=== PATIENT | female | born 1960 | race Caucasian/White ===

== ENCOUNTER 2024-01-03 14:55 | Inpatient (IN) | payer MEDICARE ==
[~2024-01-03] VITALS: Ht 160 cm; Wt 99.8 kg
[2024-01-03] MEDS: SODIUM CHLORIDE 0.9% 500ML 500 ML IV STA (15:50)
[2024-01-03] MEDS: FAMOTIDINE 20 MG/2 ML VIAL IV ONE (15:52)
[2024-01-03] MEDS: ONDANSETRON HCL INJ 2MG/ML 2ML 2 MG/ML VIAL IV ONE (15:52)
[2024-01-03] MEDS ORDERED: FAMOTIDINE 20 MG TAB PO SCH (16:15)
[2024-01-03] MEDS ORDERED: ONDANSETRON HCL INJ 2MG/ML 2ML 2 MG/ML VIAL IV PRN (16:15)
[2024-01-03] MEDS ORDERED: SODIUM CHLORIDE FLUSH 10 ML SYR INJ PRN (16:15)
[2024-01-03] MEDS ORDERED: DEXTROSE 50% SYRINGE 50 ML IV PRN (16:30)
[2024-01-03] MEDS ORDERED: LACTATED RINGER'S 1,000 ML IV SCH (16:30)
[2024-01-03 17:30] VITALS: PULSE 97; RESP 17; TEMP 98.2
[2024-01-03 17:31] LABS: TROPONIN I 0.013 ng/mL (0-0.300)
[2024-01-03] MEDS ORDERED: CLONIDINE HCL 0.2 MG TAB PO PRN (17:45)
[2024-01-03] MEDS ORDERED: DIPHENHYDRAMINE HCL INJ 50 MG/ML VIAL IV PRN (17:45)
[2024-01-03] MEDS ORDERED: HYDRALAZINE HCL 20 MG/ML VIAL IV PRN (17:45)
[2024-01-03] MEDS ORDERED: FAMOTIDINE 20 MG/2 ML VIAL IV SCH (17:45)
[2024-01-03] MEDS: NITROGLYCERIN 2% OINT 1 GM PKT TOP SCH (18:00)
[2024-01-03] MEDS ORDERED: MUPIROCIN22 GM (18:35)
[2024-01-03] MEDS ORDERED: LOSARTAN POTAS100 MG (18:35)
[2024-01-03] MEDS ORDERED: POTASSIUM CHLO20 ME2 (18:35)
[2024-01-03] MEDS ORDERED: FUROSEMIDE40 MG (18:35)
[2024-01-03] MEDS ORDERED: ATORVASTATIN CA80 MG (18:35)
[2024-01-03] MEDS ORDERED: AMLODIPINE BESY10 MG (18:35)
[2024-01-03] MEDS ORDERED: LANTUS 3ML100 UNITS/ SQ (18:35)
[2024-01-03] MEDS ORDERED: ALLOPURINOL100 MG (18:35)
[2024-01-03] MEDS ORDERED: REZVOGLAR100 UNIT/1 (18:35)
[2024-01-03] MEDS ORDERED: FLUTICASONE PRO16 GM (18:35)
[2024-01-03] MEDS ORDERED: AIRSUPRA 90-810.7 GM (18:35)
[2024-01-03] MEDS ORDERED: CARVEDILOL6.25 MG (18:35)
[2024-01-03] MEDS ORDERED: JARDIANCE10 MG (18:35)
[2024-01-03] MEDS ORDERED: GABAPENTIN100 MG (18:35)
[2024-01-03] MEDS ORDERED: ZYLOPRIM100 MG (18:35)
[2024-01-03] MEDS ORDERED: PROTONIX40 MG/ML (18:35)
[2024-01-03] MEDS ORDERED: ASPIRIN325 MG (18:35)
[2024-01-03] MEDS ORDERED: PANTOPRAZOLE SO40 MG (18:35)
[2024-01-03] MEDS ORDERED: CLOPIDOGREL75 MG (18:35)
[2024-01-03] MEDS ORDERED: HYDRALAZINE HCL25 MG (18:35)
[2024-01-03 20:00] VITALS: BP 161/73; PULSE 98; RESP 20; TEMP 98.2; O2SAT 96
[2024-01-03] MEDS: INSULIN REGULAR, HUMAN 100 UNIT/1 ML SQ SCH (21:00)
[2024-01-03] MEDS ORDERED: SIMVASTATIN 40 MG TAB PO SCH (21:00)
[2024-01-03] MEDS: DONNATAL/LIDOCAINE/MAALOX 30 ML SUSP PO ONE (21:46)
[2024-01-03] MEDS: ZOLPIDEM TARTRATE 5 MG TAB PO PRN (21:53)
[2024-01-03 22:35] VITALS: PULSE 78; RESP 16; O2SAT 94
[2024-01-04] VITALS (11 sets, daily range): BP systolic 141–190; BP diastolic 56–75; PULSE 79–98; RESP 16–20; TEMP 98–99.2; O2SAT 93–99
[2024-01-04] MEDS: ALBUTEROL/IPRATROPIUM 3 ML NEB NEB SCH (03:12)
[2024-01-04] MEDS: NICOTINE 14 MG/EA PATCH TOP SCH (03:49)
[2024-01-04 04:01] LABS: BILIRUBIN,URINE NEGATIVE (NEGATIVE); CLARITY,URINE CLOUDY (CLEAR); COLOR,URINE YELLOW (YELLOW); GLUCOSE, URINE 500 (NEGATIVE); KETONES,URINE NEGATIVE (NEGATIVE); LEUKOCYTE ESTERASE ,URINE NEGATIVE (NEGATIVE); NITRITE,URINE NEGATIVE (NEGATIVE); PH,URINE 5.5 (5 - 7); PROTEIN,URINE DIPSTICK >=300 (NEGATIVE); URINE UROBILINOGEN 0.2 mg/dL (0.2 - 1)
[2024-01-04 04:26] LABS: AMORPHOUS SEDIMENT,URINE MANY (FEW); BACTERIA,URINE MANY /HPF; EPITHELIAL CELLS,URINE MANY /LPF; RBC,URINE 21-50 /HPF (0-5); TRANSITIONAL EPI CELLS,URINE FEW; WBC,URINE (MAN) >50 /HPF (0-5)
[2024-01-04 05:42] LABS: BASOPHILS % 0.3 % (0.0-1.0); EOSINOPHILS % 0.2 % (0.0-6.0); HEMATOCRIT 35.9 % (34.2-44.1); HEMOGLOBIN 11.5 g/dL (12.0-16.0); LYMPHOCYTES # (AUTO) 0.7 (1.0-3.2); LYMPHOCYTES % 5.1 % (18.0-39.1); MEAN CORPUSCULAR HEMOGLOBIN 26.1 pg (28-32); MEAN CORPUSCULAR VOLUME 81.6 fL (81-99); MONOCYTES # (AUTO) 1.2 (0.2-0.8); MONOCYTES % 8.9 % (4.4-11.3); NEUTROPHILS # (AUTO) 11.3 (2.1-6.9); NEUTROPHILS % 84.6 % (38.7-80.0); PLATELET COUNT 213 x10e3/uL (140-360); RED CELL DISTRIBUTION WIDTH 15.2 % (11.7-14.4); WHITE BLOOD COUNT 13.38 x10e3/uL (4.8-10.8)
[2024-01-04 06:16] LABS: B-TYPE NATRIURETIC PEPTIDE2 891.2 pg/mL (0-100)
[2024-01-04 06:22] LABS: FREE T4 (FREE THYROXINE) 1.16 ng/dL (0.8-1.8); THYROID STIMULATING HORMONE 0.614 uIU/mL (0.350-4.940)
[2024-01-04 06:41] LABS: TROPONIN I 0.023 ng/mL (0-0.300)
[2024-01-04 07:48] LABS: ANION GAP 15.9 mmol/L (8-16); CALCIUM 9.8 mg/dL (8.4-10.2); CHOL/HDL RATIO 3.7 (3.0-3.6); CREATININE, SERUM 3.14 mg/dL (0.57-1.11); POTASSIUM 3.9 mmol/L (3.5-5.1)
[2024-01-04] MEDS: CEFTRIAXONE 1 GM VIAL IV ONE (08:11)
[2024-01-04] MEDS: CARVEDILOL 3.125 MG TAB PO SCH ×2 (08:31→16:08)
[2024-01-04] MEDS: PANTOPRAZOLE SOD 40 MG TABEC PO SCH (08:32)
[2024-01-04] MEDS: EMPAGLIFLOZIN 10 MG TABLET PO SCH (08:32)
[2024-01-04] MEDS: ALLOPURINOL 100 MG TAB PO SCH (08:32)
[2024-01-04] MEDS: HYDRALAZINE HCL 25 MG TAB PO SCH ×2 (08:32→15:52)
[2024-01-04] MEDS: CLOPIDOGREL BISULFATE 75 MG TAB PO SCH (08:32)
[2024-01-04] MEDS: ASPIRIN 325 MG TAB EC PO SCH (08:32)
[2024-01-04] MEDS: MUPIROCIN 2% OINT 22 GM TUBE TP SCH (08:33)
[2024-01-04] MEDS: LOSARTAN POTASSIUM 100 MG TAB PO SCH (08:33)
[2024-01-04] MEDS ORDERED: ASPIRIN 325 MG TAB PO SCH (09:00)
[2024-01-04] MEDS: FLUTICASONE PROPIONATE NASAL SPRAY NS SCH (10:08)
[2024-01-04] MEDS: NYSTATIN 15 GM POWDER UD BTL TOP PRN (10:09)
[2024-01-04] MEDS: ENOXAPARIN 30 MG/0.3 ML SYR SC SCH (10:14)
[2024-01-04] MEDS: LACTATED RINGER'S 1,000 ML INJ ONE (15:52)
[2024-01-04] MEDS: BENZONATATE 100 MG CAP PO PRN (16:07)
[2024-01-04 18:03] LABS: CREATININE,URINE RANDOM 95.1 mg/dL (47-110)
[2024-01-04 18:21] LABS: TOTAL PROTEIN, URINE 480.2 mg/dL (1-14)
[2024-01-05] VITALS (10 sets, daily range): BP systolic 104–155; BP diastolic 47–63; PULSE 63–83; RESP 17–22; TEMP 97.8–99.8; O2SAT 93–98
[2024-01-05] MEDS: ACETAMINOPHEN 325 MG TAB PO PRN (05:48)
[2024-01-05 09:37] LABS: ANION GAP 14.8 mmol/L (8-16); CALCIUM 8.5 mg/dL (8.4-10.2); CREATININE, SERUM 3.54 mg/dL (0.57-1.11); PHOSPHORUS 3.1 MG/DL (2.3-4.7); POTASSIUM 3.8 mmol/L (3.5-5.1)
[2024-01-05] MEDS: POLYETHYLENE GLYCOL 3350 17 GM PACK PO PRN (16:26)
[2024-01-05] MEDS ORDERED: ONDANSETRON HCL 4 MG ORAL DISINTEGRATING TAB PO PRN (17:15)
[2024-01-05] MEDS: INSULIN GLARGINE 100 UNITS/ML VIAL SQ SCH (22:07)
[2024-01-06] VITALS (11 sets, daily range): BP systolic 110–151; BP diastolic 48–64; PULSE 69–98; RESP 18–22; TEMP 97.9–101.5; O2SAT 94–100
[2024-01-06 05:23] LABS: BASOPHILS % 0.2 % (0.0-1.0); EOSINOPHILS # (AUTO) 0.1 (0.0-0.4); EOSINOPHILS % 0.5 % (0.0-6.0); HEMATOCRIT 32.1 % (34.2-44.1); HEMOGLOBIN 10.3 g/dL (12.0-16.0); LYMPHOCYTES % 7.7 % (18.0-39.1); MEAN CORPUSCULAR HGB CONC 32.1 g/dL (31-35); MEAN CORPUSCULAR VOLUME 81.1 fL (81-99); MONOCYTES # (AUTO) 1.4 (0.2-0.8); MONOCYTES % 11.5 % (4.4-11.3); NEUTROPHILS # (AUTO) 9.9 (2.1-6.9); NEUTROPHILS % 79.1 % (38.7-80.0); PLATELET COUNT 218 x10e3/uL (140-360); RED BLOOD COUNT 3.96 x10e6/uL (3.6-5.1); RED CELL DISTRIBUTION WIDTH 15.6 % (11.7-14.4); WHITE BLOOD COUNT 12.54 x10e3/uL (4.8-10.8)
[2024-01-06 06:02] LABS: CALCIUM 9.4 mg/dL (8.4-10.2); CREATININE, SERUM 4.19 mg/dL (0.57-1.11)
[2024-01-06] MEDS: SIMETHICONE 80 MG CHEW PO PRN (12:05)
[2024-01-06] MEDS ORDERED: NICODERM CQ1 EAC1 TOP (13:20)
[2024-01-06] MEDS ORDERED: COREG3.125 MG PO (13:20)
[2024-01-06] MEDS ORDERED: CLONIDINE HCL0.2 MG PO (13:20)
[2024-01-06] MEDS ORDERED: LOVENOX30 MG/0.3 SC (13:20)
[2024-01-06] MEDS ORDERED: ACETAMINOPHEN325 M1 PO (13:20)
[2024-01-06] MEDS ORDERED: MIRALAX17 GM PO (13:20)
[2024-01-06] MEDS ORDERED: DEXTROSE 50%-WA50 M1 IV (13:20)
[2024-01-06] MEDS ORDERED: SIMETHICONE80 MG PO (13:20)
[2024-01-06] MEDS ORDERED: NITRO-BID1 GM TOP (13:20)
[2024-01-06] MEDS ORDERED: AMBIEN5 MG PO (13:20)
[2024-01-06] MEDS ORDERED: NYAMYC15 GM TOP (13:20)
[2024-01-06] MEDS ORDERED: Sodium Chloride Flush INJ (13:20)
[2024-01-06] MEDS ORDERED: Albuterol/Ipratropium Nebulize NEB (13:20)
[2024-01-06] MEDS ORDERED: ONDANSETRON ODT4 MG PO (13:20)
[2024-01-06] MEDS ORDERED: Insulin Glargine SQ (13:20)
[2024-01-06] MEDS ORDERED: BENZONATATE100 MG PO (13:20)
[2024-01-06] MEDS ORDERED: ZOSYN 3.373.375 GM/1 IV (13:20)
[2024-01-06] MEDS ORDERED: DIPHENHYDR50 MG/1 M1 IV (13:20)
[2024-01-06] MEDS ORDERED: HUMULIN R100 UNIT/2 SQ (13:20)
[2024-01-06] MEDS ORDERED: HYDRALAZINE HCL25 MG PO (13:22)
[2024-01-06] MEDS ORDERED: HYDRALAZIN20 MG/1 ML IV (13:22)
[2024-01-06] MEDS: SODIUM CHLORIDE 0.9% 1000ML 1,000 ML IV SCH (13:44)
[2024-01-07 16:01] LABS: SPE ALPHA 1 GLOBULIN 0.4
[2024-01-07 16:02] LABS: GLOBULIN TOTAL 3.2; KAPPA LIGHT CHAINS 97.2; KAPPA/LAMBDA RATIO 1.32; LAMBDA LIGHT CHAINS 73.9
[2024-01-07 16:03] LABS: A/G RATIO 0.6
== END 2024-01-06 20:29 | disposition short-term general hospital (02) | DRG 683 ==
LOC: FSED 15:01 → ERHOLD 16:20 → MED/SURG2 18:18 → MED/SURG3 01-06 17:32
PROVIDERS: ADMIT Internal Medicine; ATTEND Internal Medicine
DX: N17.9 Acute kidney failure, unspecified (principal); I13.0 Hypertensive heart and chronic kidney disease with heart failure and stage 1 through stage 4 chronic kidney disease, or unspecified chronic kidney disease; E11.22 Type 2 diabetes mellitus with diabetic chronic kidney disease; I50.9 Heart failure, unspecified; D72.829 Elevated white blood cell count, unspecified; E11.65 Type 2 diabetes mellitus with hyperglycemia; E66.9 Obesity, unspecified; E86.0 Dehydration; J44.9 Chronic obstructive pulmonary disease, unspecified; N18.9 Chronic kidney disease, unspecified; Z79.4 Long term (current) use of insulin; I45.10 Unspecified right bundle-branch block; R00.0 Tachycardia, unspecified; R06.82 Tachypnea, not elsewhere classified; R53.81 Other malaise; R63.0 Anorexia; Z68.39 Body mass index [BMI] 39.0-39.9, adult; R31.29 Other microscopic hematuria; B37.2 Candidiasis of skin and nail; R80.9 Proteinuria, unspecified; E86.9 Volume depletion, unspecified; R11.2 Nausea with vomiting, unspecified; Z59.6 Low income; Z79.82 Long term (current) use of aspirin; Z79.84 Long term (current) use of oral hypoglycemic drugs; Z79.02 Long term (current) use of antithrombotics/antiplatelets; Z95.1 Presence of aortocoronary bypass graft; F17.210 Nicotine dependence, cigarettes, uncomplicated; Z83.3 Family history of diabetes mellitus; Z82.49 Family history of ischemic heart disease and other diseases of the circulatory system
CPT/HCPCS: 0223U; 36415; 71250; 74176; 76770; 80048; 80053; 80061; 81001; 81003; 82550; 82553; 82570; 82948; 83036; 83880; 84100; 84156; 84165; 84439; 84443; 84484; 85025; 87040; 87086; 87400; 93005; 93306; 94799; 96372; 96374; 96375; 99284; J1650; J2405; J2543; J7030; J7040